=== PATIENT | male | born 1935 | race African-American/Black ===

== ENCOUNTER 2016-08-20 22:05 | Inpatient (IN) | payer MEDICARE, MEDICAID ==
[2016-08-19 21:50] VITALS: BP 105/55
[~2016-08-20] VITALS: Ht 170.2 cm; Wt 72.1 kg
[2016-08-20] MEDS: INSULIN DETEMIR UD 100 UNITS/ML SYR SUBCUT SCH (10:00)
[2016-08-20 21:50] VITALS: BP 105/55
[~2016-08-20 22:05] MED LIST: ALBU05 NEB; AMIO200T PO; ASCO500C15 PO; BETH25TA PO; CHOL4POW2 PO; FISH1CAP38 PO; FOLI-43 PO; INSLAN SQ; INSU3INS8 SQ; LOPE1LIQ PO; MESA400C PO; NEPVIT PO; PRED5TAB PO; PREG50CA PO; ROC50 PO; SEVE800T PO
[2016-08-20] MEDS ORDERED: ONDANSETRON HCL 4MG/2ML VIAL IV PRN (23:30)
[2016-08-20] MEDS ORDERED: NITROGLYCERIN 0.4MG TABLET SL SL PRN (23:30)
[2016-08-20] MEDS ORDERED: DIPHENHYDRAMINE 50MG/ML VIAL IV PRN (23:30)
[2016-08-20] MEDS ORDERED: GUAIFENESIN 200MG/10ML SUGAR FREE UDC PO PRN (23:30)
[2016-08-20] MEDS ORDERED: CLONIDINE 0.1MG TABLET PO PRN (23:30)
[2016-08-20] MEDS ORDERED: IPRATROPIUM/ALBUTEROL 0.5-3(2.5)MG/3ML NEB HHN PRN (23:30)
[2016-08-20] MEDS ORDERED: MORPHINE SULFATE 2 MG/ML CPJ (NOT FOR IM USE) IV PRN (23:30)
[2016-08-20] MEDS ORDERED: TRAMADOL 50MG TABLET PO PRN (23:30)
[2016-08-20] MEDS ORDERED: MAGNESIUM/ALUMINUM HYDROXIDE/SIMETHICONE 30ML UDC PO PRN (23:30)
[2016-08-21] MEDS ORDERED: DEXTROSE 50% WATER 50ML SYRINGE IV PRN
[2016-08-21] MEDS: INSULIN LISPRO 100 UNITS/ML SUBCUT SCH ×4 (06:35→21:13)
[2016-08-21] MEDS: BLOOD SUGAR DIAGNOSTIC STRIP TEST SCH ×4 (06:35→21:12)
[2016-08-21 06:54] LABS: BASOPHILS % 0.6 % (0.0-2.0); EOSINOPHILS % 1.3 % (0.0-5.0); HEMATOCRIT. 32.9 % (42.0-52.0); HEMOGLOBIN. 10.3 g/dL (14.0-18.0); LYMPHOCYTES % 27.1 % (20.0-50.0); MEAN CORPUSCULAR HEMOGLOBIN 27.9 pg (28.0-32.0); MEAN CORPUSCULAR HGB CONC 31.2 g/dL (31.0-37.0); MEAN CORPUSCULAR VOLUME 89.4 fL (80.0-94.0); MONOCYTES % 12.8 % (2.0-8.0); NEUTROPHILS % 58.2 % (40.0-76.0); RED BLOOD CELL COUNT 3.68 mill/uL (4.7-6.1); RED CELL DISTRIBUTION WIDTH 19.9 % (11.6-14.6); WHITE BLOOD COUNT 4.3 x1000/uL (4.5-11.0)
[2016-08-21 07:06] LABS: ADD RBC MORPHOLOGY YES; DIFFERENTIAL COMMENT 1
[2016-08-21 07:22] LABS: ALANINE AMINOTRANSFERASE 23 IU/L (13-61); ALBUMIN 2.3 g/dL (3.4-5.0); ANION GAP 15; CALCIUM 7.8 mg/dL (8.5-10.1); CARBON DIOXIDE 25 mEq/L (21-32); CHLORIDE 109 mEq/L (98-107); INDEX HEMOLYSI 1 (1-3); INDEX ICTERIC 1 (1-4); INDEX LIPEMIC 1 (1-3); PREALBUMIN 20.3 mg/dL (20.0-40.0); UREA NITROGEN BLOOD 36 mg/dL (7-21); eGFR 8 mL/min (>60)
[2016-08-21 08:00] VITALS: BP 91/43
[2016-08-21] MEDS: SEVELAMER CARBONATE 800 MG TABLET PO SCH ×3 (08:05→17:20)
[2016-08-21] MEDS: MIDODRINE HCL 5MG TABLET PO SCH ×3 (08:05→17:00)
[2016-08-21] MEDS: PREDNISONE 5MG TABLET PO SCH (08:05)
[2016-08-21] MEDS: AMIODARONE HCL 200 MG TABLET PO SCH (08:05)
[2016-08-21] MEDS: DOCUSATE SODIUM 100MG CAPSULE PO SCH ×2 (08:06→17:20)
[2016-08-21 08:29] LABS: ANISOCYTOSIS 2+; PLATELET ESTIMATE MARKEDLY DECREASED; TEAR DROP CELLS 2+
[2016-08-21 08:30] LABS: PLATELET 32 x1000/uL (130-400)
[2016-08-21] MEDS ORDERED: ENOXAPARIN 30MG/0.3ML SYR SUBCUT SCH (09:00)
[2016-08-21] MEDS ORDERED: PANTOPRAZOLE SODIUM 40 MG/VIAL IV SCH (09:00)
[2016-08-21] MEDS ORDERED: HYDROCORTISONE 2.5% CREAM 20GM TOP PRN (09:30)
[2016-08-21] MEDS: INSULIN DETEMIR UD 100 UNITS/ML SYR SUBCUT SCH (12:03)
[2016-08-21 18:00] VITALS: BP 120/80
[2016-08-21 20:18] VITALS: BP 102/50
[2016-08-22] MEDS: EPOETIN ALFA 4000UNITS/ML VIAL SUBCUT SCH (01:57)
[2016-08-22] MEDS: OMEPRAZOLE 20MG CAPSULE EXTENDED RELEASE PO SCH (06:53)
[2016-08-22] MEDS: BLOOD SUGAR DIAGNOSTIC STRIP TEST SCH ×4 (06:53→21:20)
[2016-08-22 07:10] LABS: BASOPHILS % 0.4 % (0.0-2.0); EOSINOPHILS % 1.3 % (0.0-5.0); HEMATOCRIT. 33.7 % (42.0-52.0); HEMOGLOBIN. 10.5 g/dL (14.0-18.0); LYMPHOCYTES % 26.9 % (20.0-50.0); MEAN CORPUSCULAR HEMOGLOBIN 27.1 pg (28.0-32.0); MEAN CORPUSCULAR HGB CONC 31.2 g/dL (31.0-37.0); MEAN PLATELET VOLUME 9.3 fl (7.4-10.4); MONOCYTES % 13.1 % (2.0-8.0); NEUTROPHILS % 58.3 % (40.0-76.0); RED BLOOD CELL COUNT 3.87 mill/uL (4.7-6.1); RED CELL DISTRIBUTION WIDTH 19.5 % (11.6-14.6); WHITE BLOOD COUNT 3.9 x1000/uL (4.5-11.0)
[2016-08-22 07:12] LABS: CALCIUM 8.1 mg/dL (8.5-10.1); PHOSPHORUS 3.7 mg/dL (2.5-4.9)
[2016-08-22] MEDS: INSULIN LISPRO 100 UNITS/ML SUBCUT SCH ×4 (07:14→21:00)
[2016-08-22 07:35] LABS: ADD RBC MORPHOLOGY YES; DIFFERENTIAL COMMENT 1
[2016-08-22 07:54] VITALS: BP_SYST 45
[2016-08-22] MEDS: PREDNISONE 5MG TABLET PO SCH (08:38)
[2016-08-22] MEDS: AMIODARONE HCL 200 MG TABLET PO SCH (08:38)
[2016-08-22] MEDS: DOCUSATE SODIUM 100MG CAPSULE PO SCH ×2 (08:39→17:00)
[2016-08-22] MEDS: SEVELAMER CARBONATE 800 MG TABLET PO SCH ×3 (08:41→17:17)
[2016-08-22] MEDS: MIDODRINE HCL 5MG TABLET PO SCH ×3 (08:42→17:16)
[2016-08-22 09:35] LABS: PLATELET 37 x1000/uL (130-400)
[2016-08-22] MEDS: POLYVINYL ALCOHOL OPHTH DROPS 15ML BOTHEYE SCH ×2 (10:56→17:17)
[2016-08-22] MEDS: INSULIN DETEMIR UD 100 UNITS/ML SYR SUBCUT SCH (11:10)
[2016-08-22 20:00] VITALS: BP 111/69
[2016-08-22] MEDS: PETROLATUM,WHITE OPHTH OINT 3.5GM BOTHEYE SCH (21:21)
[2016-08-23] VITALS (7 sets, daily range): BP systolic 17–131; BP diastolic 47–59
[2016-08-23] MEDS: BLOOD SUGAR DIAGNOSTIC STRIP TEST SCH ×4 (06:30→21:00)
[2016-08-23 06:34] LABS: BASOPHILS % 0.7 % (0.0-2.0); EOSINOPHILS % 0.9 % (0.0-5.0); HEMATOCRIT. 33.1 % (42.0-52.0); HEMOGLOBIN. 10.2 g/dL (14.0-18.0); LYMPHOCYTES % 31.1 % (20.0-50.0); MEAN CORPUSCULAR HEMOGLOBIN 27.3 pg (28.0-32.0); MEAN CORPUSCULAR HGB CONC 30.8 g/dL (31.0-37.0); MEAN CORPUSCULAR VOLUME 88.6 fL (80.0-94.0); MEAN PLATELET VOLUME 9.7 fl (7.4-10.4); NEUTROPHILS % 52.3 % (40.0-76.0); RED BLOOD CELL COUNT 3.73 mill/uL (4.7-6.1); RED CELL DISTRIBUTION WIDTH 19.9 % (11.6-14.6); WHITE BLOOD COUNT 4.2 x1000/uL (4.5-11.0)
[2016-08-23 06:36] LABS: INR 1.1; PROTHROMBIN TIME 11.7 sec
[2016-08-23 07:18] LABS: DIFFERENTIAL COMMENT 1
[2016-08-23 07:23] LABS: PLATELET 45 x1000/uL (130-400)
[2016-08-23] MEDS: OMEPRAZOLE 20MG CAPSULE EXTENDED RELEASE PO SCH (07:33)
[2016-08-23 07:48] LABS: INDEX HEMOLYSI 3 (1-3)
[2016-08-23 07:51] LABS: CALCIUM 7.9 mg/dL (8.5-10.1); MAGNESIUM 2.4 mg/dL (1.8-2.4); PHOSPHORUS 4.3 mg/dL (2.5-4.9); THYROID STIMULATING HORMONE 4.6 uIU/mL (0.36-3.74)
[2016-08-23] MEDS: INSULIN LISPRO 100 UNITS/ML SUBCUT SCH ×4 (08:01→21:00)
[2016-08-23 08:05] LABS: VITAMIN B12 SERUM 1477 pg/mL (211-911)
[2016-08-23 08:11] LABS: FOLIC ACID (FOLATE) SERUM > 20.00 ng/mL (>5.38)
[2016-08-23] MEDS ORDERED: SODIUM CHLORIDE 0.9% 10ML VIAL ONE (09:00)
[2016-08-23] MEDS ORDERED: IOHEXOL-300 100 ML BOTTLE ONE (09:00)
[2016-08-23 09:10] LABS: IMMUNOGLOBULIN A 137 mg/dL (61-437); IMMUNOGLOBULIN G 623 mg/dL (700-1600); IMMUNOGLOBULIN M 67 mg/dL (15-143)
[2016-08-23] MEDS ORDERED: CEFAZOLIN 1000MG PREMIX 50 ML IV ONE (09:45)
[2016-08-23 10:38] LABS: FERRITIN 1736 ng/mL (22-322)
[2016-08-23] MEDS: MIDODRINE HCL 5MG TABLET PO SCH ×3 (10:49→17:53)
[2016-08-23] MEDS: PREDNISONE 5MG TABLET PO SCH (10:49)
[2016-08-23] MEDS: SEVELAMER CARBONATE 800 MG TABLET PO SCH ×3 (10:49→17:53)
[2016-08-23] MEDS: DOCUSATE SODIUM 100MG CAPSULE PO SCH ×2 (10:50→17:53)
[2016-08-23] MEDS: POLYVINYL ALCOHOL OPHTH DROPS 15ML BOTHEYE SCH ×2 (10:50→17:52)
[2016-08-23] MEDS: AMIODARONE HCL 200 MG TABLET PO SCH (10:50)
[2016-08-23] MEDS: INSULIN DETEMIR UD 100 UNITS/ML SYR SUBCUT SCH (10:57)
[2016-08-23 14:11] LABS: ANTI-NUCLEAR ANTIBODIES DIRECT Negative (Negative)
[2016-08-23] MEDS: PETROLATUM,WHITE OPHTH OINT 3.5GM BOTHEYE SCH (23:41)
[2016-08-23] MEDS: EPOETIN ALFA 4000UNITS/ML VIAL SUBCUT SCH (23:42)
[2016-08-24] MEDS: INSULIN LISPRO 100 UNITS/ML SUBCUT SCH ×4 (06:33→20:53)
[2016-08-24] MEDS: OMEPRAZOLE 20MG CAPSULE EXTENDED RELEASE PO SCH (06:33)
[2016-08-24] MEDS: BLOOD SUGAR DIAGNOSTIC STRIP TEST SCH ×4 (06:33→20:59)
[2016-08-24 08:00] VITALS: BP 124/70
[2016-08-24] MEDS: SEVELAMER CARBONATE 800 MG TABLET PO SCH ×3 (08:12→16:32)
[2016-08-24] MEDS: POLYVINYL ALCOHOL OPHTH DROPS 15ML BOTHEYE SCH ×2 (08:13→16:35)
[2016-08-24] MEDS: ACETAMINOPHEN 325MG TABLET PO PRN ×2 (08:13→12:25)
[2016-08-24] MEDS: MIDODRINE HCL 5MG TABLET PO SCH ×3 (08:13→16:32)
[2016-08-24] MEDS: DOCUSATE SODIUM 100MG CAPSULE PO SCH ×2 (08:13→16:32)
[2016-08-24] MEDS: AMIODARONE HCL 200 MG TABLET PO SCH (08:13)
[2016-08-24 08:29] LABS: BASOPHILS % 0.4 % (0.0-2.0); EOSINOPHILS % 0.7 % (0.0-5.0); HEMATOCRIT. 33.9 % (42.0-52.0); HEMOGLOBIN. 10.7 g/dL (14.0-18.0); LYMPHOCYTES % 25.9 % (20.0-50.0); MEAN CORPUSCULAR HEMOGLOBIN 27.4 pg (28.0-32.0); MEAN CORPUSCULAR HGB CONC 31.5 g/dL (31.0-37.0); MEAN CORPUSCULAR VOLUME 86.8 fL (80.0-94.0); MEAN PLATELET VOLUME 10.3 fl (7.4-10.4); MONOCYTES % 13.2 % (2.0-8.0); NEUTROPHILS % 59.8 % (40.0-76.0); RED CELL DISTRIBUTION WIDTH 19.2 % (11.6-14.6); WHITE BLOOD COUNT 4.3 x1000/uL (4.5-11.0)
[2016-08-24 08:34] LABS: T4 FREE 1.18 ng/dL (0.76-1.46)
[2016-08-24 08:36] LABS: T3 FREE 1.25 pg/ml (2.18-3.98)
[2016-08-24] MEDS: PREDNISONE 5MG TABLET PO SCH (08:36)
[2016-08-24 08:55] LABS: DIFFERENTIAL COMMENT 1
[2016-08-24 08:58] LABS: PLATELET 40 x1000/uL (130-400)
[2016-08-24] MEDS ORDERED: LACTULOSE 20G/30ML UDC PO ONE (09:45)
[2016-08-24] MEDS ORDERED: NA PHOS,M-B/NA PHOS,DI-BA ENEMA 118ML PR NR (09:45)
[2016-08-24] MEDS ORDERED: NA PHOS,M-B/NA PHOS,DI-BA ENEMA 118ML PR PRN (09:45)
[2016-08-24] MEDS ORDERED: BISACODYL 10MG SUPP PR PRN (09:45)
[2016-08-24] MEDS: INSULIN DETEMIR UD 100 UNITS/ML SYR SUBCUT SCH (10:00)
[2016-08-24 11:14] LABS: ADD RBC MORPHOLOGY YES
[2016-08-24] MEDS: LACTULOSE 20G/30ML UDC PO SCH ×3 (11:40→16:33)
[2016-08-24] MEDS ORDERED: LACTULOSE 20G/30ML UDC PO SCH (14:00)
[2016-08-24] MEDS: GENTAMICIN 0.3% OPHTH DROPS 5ML RIGHTEYE SCH ×3 (16:32→20:58)
[2016-08-24] MEDS ORDERED: DOCUSATE SODIUM 100MG CAPSULE PO SCH (17:00)
[2016-08-24 20:00] VITALS: BP 119/62
[2016-08-24] MEDS ORDERED: POLYETHYLENE GLYCOL 3350 (17GM) 1 DOSE PACK PO SCH (21:00)
[2016-08-24] MEDS: PETROLATUM,WHITE OPHTH OINT 3.5GM BOTHEYE SCH (21:59)
[2016-08-25] MEDS: GENTAMICIN 0.3% OPHTH DROPS 5ML RIGHTEYE SCH ×4 (00:02→11:26)
[2016-08-25] MEDS: BLOOD SUGAR DIAGNOSTIC STRIP TEST SCH ×4 (05:55→21:55)
[2016-08-25] MEDS: OMEPRAZOLE 20MG CAPSULE EXTENDED RELEASE PO SCH (06:02)
[2016-08-25] MEDS: INSULIN LISPRO 100 UNITS/ML SUBCUT SCH ×4 (06:27→22:02)
[2016-08-25 08:00] VITALS: BP 96/57
[2016-08-25 08:00] LABS: BASOPHILS % 0.4 % (0.0-2.0); HEMATOCRIT. 34.3 % (42.0-52.0); HEMOGLOBIN. 10.7 g/dL (14.0-18.0); LYMPHOCYTES % 22.3 % (20.0-50.0); MEAN CORPUSCULAR HEMOGLOBIN 27.2 pg (28.0-32.0); MEAN CORPUSCULAR HGB CONC 31.2 g/dL (31.0-37.0); MEAN CORPUSCULAR VOLUME 87.1 fL (80.0-94.0); MEAN PLATELET VOLUME 9.9 fl (7.4-10.4); MONOCYTES % 12.2 % (2.0-8.0); NEUTROPHILS % 64.1 % (40.0-76.0); RED BLOOD CELL COUNT 3.94 mill/uL (4.7-6.1); RED CELL DISTRIBUTION WIDTH 19.6 % (11.6-14.6); WHITE BLOOD COUNT 4.1 x1000/uL (4.5-11.0)
[2016-08-25 08:05] LABS: DIFFERENTIAL COMMENT 1
[2016-08-25] MEDS: PREDNISONE 5MG TABLET PO SCH (08:27)
[2016-08-25] MEDS: AMIODARONE HCL 200 MG TABLET PO SCH (08:27)
[2016-08-25] MEDS: SEVELAMER CARBONATE 800 MG TABLET PO SCH ×3 (08:27→16:06)
[2016-08-25] MEDS: POLYVINYL ALCOHOL OPHTH DROPS 15ML BOTHEYE SCH ×2 (08:28→16:06)
[2016-08-25] MEDS: MIDODRINE HCL 5MG TABLET PO SCH ×3 (08:28→16:06)
[2016-08-25] MEDS: ACETAMINOPHEN 325MG TABLET PO PRN (08:30)
[2016-08-25 08:34] LABS: CALCIUM 7.9 mg/dL (8.5-10.1); MAGNESIUM 2.4 mg/dL (1.8-2.4)
[2016-08-25 09:29] LABS: ADD RBC MORPHOLOGY YES
[2016-08-25 09:37] LABS: PLATELET 55 x1000/uL (130-400)
[2016-08-25] MEDS: INSULIN DETEMIR UD 100 UNITS/ML SYR SUBCUT SCH (11:30)
[2016-08-25] MEDS: GENTAMICIN 0.3% OPHTH DROPS 5ML BOTHEYE SCH ×2 (16:06→21:55)
[2016-08-25 20:38] VITALS: BP 113/60
[2016-08-25] MEDS: PETROLATUM,WHITE OPHTH OINT 3.5GM BOTHEYE SCH (21:55)
[2016-08-26] MEDS: GENTAMICIN 0.3% OPHTH DROPS 5ML BOTHEYE SCH ×6 (01:40→23:13)
[2016-08-26] MEDS: OMEPRAZOLE 20MG CAPSULE EXTENDED RELEASE PO SCH (06:29)
[2016-08-26] MEDS: BLOOD SUGAR DIAGNOSTIC STRIP TEST SCH ×4 (06:29→21:00)
[2016-08-26 07:00] LABS: BASOPHILS % 0.5 % (0.0-2.0); EOSINOPHILS % 0.6 % (0.0-5.0); HEMATOCRIT. 33.1 % (42.0-52.0); HEMOGLOBIN. 10.4 g/dL (14.0-18.0); LYMPHOCYTES % 25.8 % (20.0-50.0); MEAN CORPUSCULAR HEMOGLOBIN 27.9 pg (28.0-32.0); MEAN CORPUSCULAR HGB CONC 31.5 g/dL (31.0-37.0); MEAN CORPUSCULAR VOLUME 88.6 fL (80.0-94.0); MEAN PLATELET VOLUME 9.9 fl (7.4-10.4); MONOCYTES % 14.7 % (2.0-8.0); NEUTROPHILS % 58.4 % (40.0-76.0); RED BLOOD CELL COUNT 3.74 mill/uL (4.7-6.1); RED CELL DISTRIBUTION WIDTH 19.3 % (11.6-14.6); WHITE BLOOD COUNT 4.5 x1000/uL (4.5-11.0)
[2016-08-26 07:11] LABS: ADD RBC MORPHOLOGY YES; DIFFERENTIAL COMMENT 1
[2016-08-26 07:37] LABS: CALCIUM 8.3 mg/dL (8.5-10.1); MAGNESIUM 2.7 mg/dL (1.8-2.4); PHOSPHORUS 4.9 mg/dL (2.5-4.9)
[2016-08-26 08:00] VITALS: BP 112/58
[2016-08-26] MEDS: MIDODRINE HCL 5MG TABLET PO SCH ×3 (08:20→17:42)
[2016-08-26] MEDS: PREDNISONE 5MG TABLET PO SCH (08:20)
[2016-08-26] MEDS: AMIODARONE HCL 200 MG TABLET PO SCH (08:20)
[2016-08-26] MEDS: INSULIN LISPRO 100 UNITS/ML SUBCUT SCH ×4 (08:20→21:00)
[2016-08-26] MEDS: SEVELAMER CARBONATE 800 MG TABLET PO SCH ×3 (08:20→17:41)
[2016-08-26] MEDS: POLYVINYL ALCOHOL OPHTH DROPS 15ML BOTHEYE SCH ×2 (08:21→17:42)
[2016-08-26 09:34] LABS: ANISOCYTOSIS 2+; OVALOCYTES 1+; PLATELET 57 x1000/uL (130-400); PLATELET ESTIMATE DECREASED; TEAR DROP CELLS 1+
[2016-08-26 10:22] LABS: 25-HYDROXY VITAMIN D3 6.8 ng/mL (.)
[2016-08-26] MEDS: INSULIN DETEMIR UD 100 UNITS/ML SYR SUBCUT SCH (11:30)
[2016-08-26] MEDS ORDERED: ERGOCALCIFEROL 50000UNITS CAPSULE PO SCH (15:00)
[2016-08-26 15:07] LABS: KAPPA LT CHAINS FREE SERUM 170.13 mg/L (3.30-19.40); KAPPA/LAMBDA RATIO 1.21 (0.26-1.65); LAMBDA LT CHAINS FREE SERUM 140.04 mg/L (5.71-26.30)
[2016-08-26 20:00] VITALS: BP 116/62
[2016-08-26] MEDS: EPOETIN ALFA 4000UNITS/ML VIAL SUBCUT SCH (23:13)
[2016-08-26] MEDS: PETROLATUM,WHITE OPHTH OINT 3.5GM BOTHEYE SCH (23:46)
[2016-08-27] MEDS: GENTAMICIN 0.3% OPHTH DROPS 5ML BOTHEYE SCH ×6 (03:22→23:34)
[2016-08-27] MEDS: BLOOD SUGAR DIAGNOSTIC STRIP TEST SCH ×3 (06:12→16:36)
[2016-08-27] MEDS: INSULIN LISPRO 100 UNITS/ML SUBCUT SCH ×4 (06:12→21:00)
[2016-08-27 06:19] LABS: METHYLMALONIC ACID 328 nmol/L (0-378)
[2016-08-27] MEDS: OMEPRAZOLE 20MG CAPSULE EXTENDED RELEASE PO SCH (06:49)
[2016-08-27 08:00] VITALS: BP 100/46
[2016-08-27] MEDS: POLYVINYL ALCOHOL OPHTH DROPS 15ML BOTHEYE SCH ×2 (08:38→16:29)
[2016-08-27] MEDS: PREDNISONE 5MG TABLET PO SCH (08:39)
[2016-08-27] MEDS: AMIODARONE HCL 200 MG TABLET PO SCH (08:39)
[2016-08-27] MEDS: SEVELAMER CARBONATE 800 MG TABLET PO SCH ×3 (08:40→16:30)
[2016-08-27] MEDS: MIDODRINE HCL 5MG TABLET PO SCH ×3 (08:41→16:30)
[2016-08-27] MEDS: INSULIN DETEMIR UD 100 UNITS/ML SYR SUBCUT SCH (10:21)
[2016-08-27 12:00] VITALS: BP 109/46
[2016-08-27 15:07] LABS: HLA CLASS 1 ANTIBODY Negative (Negative); IIb/IIIa ANTIBODY Negative (Negative); Ia/IIa ANTIBODY Negative (Negative); Ib/IX ANTIBODY Negative (Negative)
[2016-08-27 16:00] VITALS: BP 108/48
[2016-08-27] MEDS ORDERED: POLYETHYLENE GLYCOL 3350 (17GM) 1 DOSE PACK PO PRN (19:00)
[2016-08-27 20:00] VITALS: BP 113/58
[2016-08-27] MEDS ORDERED: DULOXETINE HCL 20MG DR CAPSULE PO SCH (21:00)
[2016-08-27] MEDS: PETROLATUM,WHITE OPHTH OINT 3.5GM BOTHEYE SCH (23:04)
[2016-08-28] MEDS: GENTAMICIN 0.3% OPHTH DROPS 5ML BOTHEYE SCH (05:02)
[2016-08-28] MEDS: BLOOD SUGAR DIAGNOSTIC STRIP TEST SCH ×2 (05:05→17:00)
[2016-08-28] MEDS: OMEPRAZOLE 20MG CAPSULE EXTENDED RELEASE PO SCH (06:32)
[2016-08-28 07:00] LABS: HEMATOCRIT. 34.2 % (42.0-52.0); HEMOGLOBIN. 10.9 g/dL (14.0-18.0); MEAN CORPUSCULAR HEMOGLOBIN 27.6 pg (28.0-32.0); MEAN CORPUSCULAR VOLUME 86.4 fL (80.0-94.0); MEAN PLATELET VOLUME 10.1 fl (7.4-10.4); PLATELET 77 x1000/uL (130-400); RED BLOOD CELL COUNT 3.96 mill/uL (4.7-6.1); RED CELL DISTRIBUTION WIDTH 19.5 % (11.6-14.6); WHITE BLOOD COUNT 4.5 x1000/uL (4.5-11.0)
[2016-08-28 07:34] LABS: CHLORIDE 100 mEq/L (98-107); INDEX HEMOLYSI 1 (1-3); INDEX ICTERIC 1 (1-4); INDEX LIPEMIC 1 (1-3)
[2016-08-28 07:42] LABS: ALANINE AMINOTRANSFERASE 9 IU/L (13-61); ALBUMIN 2.7 g/dL (3.4-5.0); ANION GAP 14; CALCIUM 8.2 mg/dL (8.5-10.1); CARBON DIOXIDE 27 mEq/L (21-32); MAGNESIUM 2.5 mg/dL (1.8-2.4); PHOSPHORUS 3.7 mg/dL (2.5-4.9); UREA NITROGEN BLOOD 35 mg/dL (7-21); eGFR 8 mL/min (>60)
[2016-08-28 08:00] VITALS: BP 108/50
[2016-08-28 08:19] LABS: DIFFERENTIAL COMMENT 1
[2016-08-28] MEDS: SEVELAMER CARBONATE 800 MG TABLET PO SCH ×3 (08:32→18:01)
[2016-08-28] MEDS: PREDNISONE 5MG TABLET PO SCH (08:32)
[2016-08-28] MEDS: AMIODARONE HCL 200 MG TABLET PO SCH (08:32)
[2016-08-28] MEDS: POLYVINYL ALCOHOL OPHTH DROPS 15ML BOTHEYE SCH ×2 (08:33→18:01)
[2016-08-28] MEDS: INSULIN LISPRO 100 UNITS/ML SUBCUT SCH ×4 (08:33→20:51)
[2016-08-28] MEDS: MIDODRINE HCL 5MG TABLET PO SCH ×3 (08:33→18:01)
[2016-08-28] MEDS: INSULIN DETEMIR UD 100 UNITS/ML SYR SUBCUT SCH (11:24)
[2016-08-28] MEDS: KETOROLAC TROMETHAMINE 0.5% OPHTH 3ML BOTHEYE SCH ×3 (11:24→23:53)
[2016-08-28] MEDS: ACETAMINOPHEN 325MG TABLET PO PRN (13:37)
[2016-08-28 14:24] LABS: NUCLEATED RED BLOOD CELLS 2 /100 WBC
[2016-08-28 14:25] LABS: ANISOCYTOSIS 2+; PLATELET ESTIMATE DECREASED
[2016-08-28 20:00] VITALS: BP 120/55
[2016-08-28] MEDS: PETROLATUM,WHITE OPHTH OINT 3.5GM BOTHEYE SCH (20:53)
[2016-08-28] MEDS ORDERED: DULOXETINE HCL 30MG DR CAPSULE PO SCH (21:00)
[2016-08-28] MEDS: PREDNISOLONE ACETATE 1% OPHTH DROPS 1ML BOTHEYE SCH (23:52)
[2016-08-29] MEDS: KETOROLAC TROMETHAMINE 0.5% OPHTH 3ML BOTHEYE SCH (06:11)
[2016-08-29] MEDS: PREDNISOLONE ACETATE 1% OPHTH DROPS 1ML BOTHEYE SCH ×3 (06:11→16:23)
[2016-08-29] MEDS: OMEPRAZOLE 20MG CAPSULE EXTENDED RELEASE PO SCH (06:11)
[2016-08-29] MEDS: INSULIN LISPRO 100 UNITS/ML SUBCUT SCH ×4 (06:59→22:22)
[2016-08-29 08:00] VITALS: BP 158/54
[2016-08-29] MEDS: PREDNISONE 5MG TABLET PO SCH (08:02)
[2016-08-29] MEDS: AMIODARONE HCL 200 MG TABLET PO SCH (08:02)
[2016-08-29] MEDS: SEVELAMER CARBONATE 800 MG TABLET PO SCH ×3 (08:02→16:22)
[2016-08-29] MEDS: BLOOD SUGAR DIAGNOSTIC STRIP TEST SCH ×2 (08:03→16:23)
[2016-08-29] MEDS: CIPROFLOXACIN 0.3% OPHTH SOLN 2.5ML BOTHEYE SCH ×4 (08:03→21:57)
[2016-08-29] MEDS: POLYVINYL ALCOHOL OPHTH DROPS 15ML BOTHEYE SCH ×2 (08:03→16:23)
[2016-08-29] MEDS: MIDODRINE HCL 5MG TABLET PO SCH ×3 (08:49→16:22)
[2016-08-29] MEDS ORDERED: ONDANSETRON HCL 4MG TABLET PO PRN (09:15)
[2016-08-29] MEDS ORDERED: ONDANSETRON 4MG ODT PO PRN (09:15)
[2016-08-29] MEDS: INSULIN DETEMIR UD 100 UNITS/ML SYR SUBCUT SCH (09:48)
[2016-08-29 10:50] LABS: T3 FREE 1.06 pg/ml (2.18-3.98); T4 FREE 1.15 ng/dL (0.76-1.46)
[2016-08-29 10:51] LABS: THYROID STIMULATING HORMONE 4.1 uIU/mL (0.36-3.74)
[2016-08-29 20:00] VITALS: BP 138/65
[2016-08-29] MEDS: NORTRIPTYLINE HCL 25MG CAPSULE PO SCH (22:25)
[2016-08-30] MEDS: PREDNISOLONE ACETATE 1% OPHTH DROPS 1ML BOTHEYE SCH ×4 (00:22→17:19)
[2016-08-30 06:27] LABS: HEMATOCRIT. 35.9 % (42.0-52.0); HEMOGLOBIN. 11.3 g/dL (14.0-18.0); MEAN CORPUSCULAR HEMOGLOBIN 27.6 pg (28.0-32.0); MEAN CORPUSCULAR HGB CONC 31.4 g/dL (31.0-37.0); MEAN CORPUSCULAR VOLUME 87.9 fL (80.0-94.0); MEAN PLATELET VOLUME 9.8 fl (7.4-10.4); PLATELET 86 x1000/uL (130-400); RED BLOOD CELL COUNT 4.08 mill/uL (4.7-6.1); RED CELL DISTRIBUTION WIDTH 20.3 % (11.6-14.6); WHITE BLOOD COUNT 4.5 x1000/uL (4.5-11.0)
[2016-08-30] MEDS: OMEPRAZOLE 20MG CAPSULE EXTENDED RELEASE PO SCH (07:01)
[2016-08-30 07:09] LABS: DIFFERENTIAL COMMENT 1
[2016-08-30] MEDS: INSULIN LISPRO 100 UNITS/ML SUBCUT SCH ×4 (07:13→21:00)
[2016-08-30 08:00] VITALS: BP 115/65
[2016-08-30 08:03] LABS: CALCIUM 8.7 mg/dL (8.5-10.1); PHOSPHORUS 3.8 mg/dL (2.5-4.9)
[2016-08-30] MEDS: MIDODRINE HCL 5MG TABLET PO SCH ×3 (08:40→17:18)
[2016-08-30] MEDS: AMIODARONE HCL 200 MG TABLET PO SCH (08:40)
[2016-08-30] MEDS: SEVELAMER CARBONATE 800 MG TABLET PO SCH ×3 (08:40→17:17)
[2016-08-30] MEDS: PREDNISONE 5MG TABLET PO SCH (08:40)
[2016-08-30] MEDS: POLYVINYL ALCOHOL OPHTH DROPS 15ML BOTHEYE SCH ×2 (08:44→17:19)
[2016-08-30] MEDS: CIPROFLOXACIN 0.3% OPHTH SOLN 2.5ML BOTHEYE SCH ×4 (08:44→22:02)
[2016-08-30] MEDS: BLOOD SUGAR DIAGNOSTIC STRIP TEST SCH ×2 (08:49→17:26)
[2016-08-30] MEDS: INSULIN DETEMIR UD 100 UNITS/ML SYR SUBCUT SCH (10:34)
[2016-08-30 11:06] LABS: ANISOCYTOSIS 1+; NUCLEATED RED BLOOD CELLS 1 /100 WBC; PLATELET ESTIMATE DECREASED
[2016-08-30 11:07] LABS: OVALOCYTES 1+; TEAR DROP CELLS 1+
[2016-08-30 20:00] VITALS: BP 120/60
[2016-08-30] MEDS: NORTRIPTYLINE HCL 25MG CAPSULE PO SCH (22:01)
[2016-08-31] MEDS: PREDNISOLONE ACETATE 1% OPHTH DROPS 1ML BOTHEYE SCH ×3 (00:41→12:11)
[2016-08-31] MEDS: OMEPRAZOLE 20MG CAPSULE EXTENDED RELEASE PO SCH (06:07)
[2016-08-31] MEDS: INSULIN LISPRO 100 UNITS/ML SUBCUT SCH ×2 (07:00→12:38)
[2016-08-31 08:00] VITALS: BP 100/55
[2016-08-31] MEDS: SEVELAMER CARBONATE 800 MG TABLET PO SCH ×2 (08:25→12:11)
[2016-08-31] MEDS: AMIODARONE HCL 200 MG TABLET PO SCH (08:26)
[2016-08-31] MEDS: PREDNISONE 5MG TABLET PO SCH (08:26)
[2016-08-31] MEDS: MIDODRINE HCL 5MG TABLET PO SCH ×2 (08:26→12:14)
[2016-08-31] MEDS: POLYVINYL ALCOHOL OPHTH DROPS 15ML BOTHEYE SCH (08:27)
[2016-08-31] MEDS: CIPROFLOXACIN 0.3% OPHTH SOLN 2.5ML BOTHEYE SCH ×2 (08:31→12:11)
[2016-08-31] MEDS: BLOOD SUGAR DIAGNOSTIC STRIP TEST SCH (09:00)
[2016-08-31] MEDS: INSULIN DETEMIR UD 100 UNITS/ML SYR SUBCUT SCH (10:26)
[2016-08-31 13:18] VITALS: BP 124/50
== END 2016-08-31 15:40 | disposition home health service (06) | DRG 515 ==
PROVIDERS: ADMIT Physical Medicine & Rehabilitation Spinal Cord Injury Medicine; ATTEND Internal Medicine
PROC: 5A1D60Z (ICD-10-PCS; 2016-08-21)
PROC: 06H03DZ Insertion of Intraluminal Device into Inferior Vena Cava, Percutaneous Approach (ICD-10-PCS; principal; 2016-08-23)
DX: M48.02 Spinal stenosis, cervical region (principal); E43 Unspecified severe protein-calorie malnutrition; G82.50 Quadriplegia, unspecified; N18.6 End stage renal disease; J18.9 Pneumonia, unspecified organism; I50.33 Acute on chronic diastolic (congestive) heart failure; D61.818 Other pancytopenia; Z94.0 Kidney transplant status; I13.2 Hypertensive heart and chronic kidney disease with heart failure and with stage 5 chronic kidney disease, or end stage renal disease; I82.412 Acute embolism and thrombosis of left femoral vein; K86.2 Cyst of pancreas; M48.06 Spinal stenosis, lumbar region; E11.21 Type 2 diabetes mellitus with diabetic nephropathy; E11.22 Type 2 diabetes mellitus with diabetic chronic kidney disease; E11.65 Type 2 diabetes mellitus with hyperglycemia; E78.5 Hyperlipidemia, unspecified; G25.81 Restless legs syndrome; I48.91 Unspecified atrial fibrillation; N40.0 Benign prostatic hyperplasia without lower urinary tract symptoms; R29.6 Repeated falls; I95.1 Orthostatic hypotension; G89.29 Other chronic pain; R53.81 Other malaise; D63.8 Anemia in other chronic diseases classified elsewhere; R26.9 Unspecified abnormalities of gait and mobility; M54.5 Low back pain; E55.9 Vitamin D deficiency, unspecified; E11.42 Type 2 diabetes mellitus with diabetic polyneuropathy; H10.89 Other conjunctivitis; F03.90 Unspecified dementia, unspecified severity, without behavioral disturbance, psychotic disturbance, mood disturbance, and anxiety; M47.892 Other spondylosis, cervical region; M47.896 Other spondylosis, lumbar region; I25.10 Atherosclerotic heart disease of native coronary artery without angina pectoris; Z68.24 Body mass index [BMI] 24.0-24.9, adult; Z95.0 Presence of cardiac pacemaker; Z90.49 Acquired absence of other specified parts of digestive tract; Z99.2 Dependence on renal dialysis; G25.3 Myoclonus; T42.6X5A Adverse effect of other antiepileptic and sedative-hypnotic drugs, initial encounter
CPT/HCPCS: 36415; 37191; 80048; 80053; 80061; 82306; 82607; 82728; 82746; 82784; 82962; 83540; 83550; 83735; 83883; 83921; 84100; 84134; 84439; 84443; 84481; 84630; 85025; 85610; 86022; 86038; 86334; 93970; 97110; 97112; 97116; 97150; 97162; 97167; 97530; 97535; A4216; C1769; C1880; C1887; C9113; J0885; J1815; J7030; J7040; J7512; Q0162; Q9967